=== PATIENT | female | born 1990 | race Caucasian/White ===

== ENCOUNTER 2016-04-30 20:53 | Emergency (ER) | payer OTHER ==
[2016-04-30 20:59] VITALS: TEMP 98.1; BMI 39.1
--- NOTE | 2016-04-30 21:53 | PDOC ---
History of Present Illness - History of Present Illness Initial Comments: 04/30/16 22:10 The patient is a 25 year old female, , with a significant past medical history of asthma, who presents to the emergency department with vaginal spotting today after having a positive at-home test today. She states the vaginal spotting is light brownish/pink in color and intermittent. The patient states she took the test an hour ago before coming to the ED. The patient reports taking a test 2 weeks ago which was negative. The patient reports having a miscarriage in January 2016. The patient reports her LMP February 2016. She denies chest pain, shortness of breath, headache and dizziness. She denies fever, chills, nausea, vomit, diarrhea and constipation. She denies dysuria, frequency, urgency and hematuria. Allergies: NKDA Past surgical history: Social history: denies toxic habits PCP - Dr. Aretha Bloom Legal Instruments Examiner: [facility] <Ela Horan - Last Filed: 04/30/16 22:09> <Danyelle Banegas - Last Filed: 05/01/16 01:10> - General Chief Complaint: Vaginal Bleeding Stated Complaint: VAGINAL BLEEDING Time Seen by Provider: 04/30/16 21:37 Past History <Ela Horan - Last Filed: 04/30/16 22:09> - Past Medical History Asthma: Yes Cancer: No Cardiac Disorders: No Diabetes: No HTN: No Seizures: No Thyroid Disease: No - Reproductive History (#): 1 Para: 0 Cervical CA: No Dysfunctional Uterine Bleeding: No Ectopic : No Endometrial CA: No Polycystic Ovaries: No Therapeutic (s) & number: No Tubal Ligation: No Spontaneous : 0 - Immunization History Immunization Up to Date: Yes - Psycho/Social/Smoking Cessation Hx Anxiety: No Suicidal Ideation: No Smoking History: Never smoked Information on smoking cessation initiated: No Hx Alcohol Use: No Drug/Substance Use Hx: No Substance Use Type: None Hx Substance Use Treatment: No <Danyelle Banegas - Last Filed: 05/01/16 01:10> - Past Medical History Allergies/Adverse Reactions: Allergies Allergy/AdvReac Type Severity Reaction Status Date / Time No Known Allergies Allergy Verified 04/30/16 20:57 Home Medications: Ambulatory Orders NK [No Known Home Medication] 02/07/16 Review of Systems - Review of Systems Able to Perform ROS?: Yes Comments:: 04/30/16 22:10 CONSTITUTIONAL: Absent: fever, chills, diaphoresis, generalized weakness, malaise, loss of appetite HEENT: Absent: rhinorrhea, nasal congestion, throat pain, throat swelling, difficulty swallowing, mouth swelling, ear pain, eye pain, visual Changes CARDIOVASCULAR: Absent: chest pain, syncope, palpitations, irregular heart rate, lightheadedness , peripheral edema RESPIRATORY: Absent: cough, shortness of breath, dyspnea with exertion, orthopnea, wheezing, stridor, hemoptysis GASTROINTESTINAL: Absent: abdominal pain, abdominal distension, nausea, vomiting, diarrhea, constipation, melena, hematochezia GENITOURINARY: (+) Vaginal spotting during . Absent: dysuria, frequency, urgency, hesitancy, hematuria, flank pain, genital pain MUSCULOSKELETAL: Absent: myalgia, arthralgia, joint swelling SKIN: Absent: rash, itching, pallor HEMATOLOGIC/IMMUNOLOGIC: Absent: easy bleeding, easy bruising, lymphadenopathy, frequent infections ENDOCRINE: Absent: unexplained weight gain, unexplained weight loss, heat intolerance, cold intolerance NEUROLOGIC: Absent: headache, focal weakness or paresthesias, dizziness, unsteady gait, seizure, mental status changes, bladder or bowel incontinence PSYCHIATRIC: Absent: anxiety, depression, suicidal or homicidal ideation, hallucinations. <Ela Horan - Last Filed: 04/30/16 22:09> *Physical Exam - Vital Signs Last Vital Signs Temp Pulse Resp BP Pulse Ox 98.1 F 85 18 115/81 98 04/30/16 20:57 04/30/16 20:57 04/30/16 20:57 04/30/16 20:57 04/30/16 20:57 - Physical Exam Comments: 04/30/16 22:15 GENERAL: Well developed, well nourished. Awake and alert. No acute distress. HEENT: Normocephalic, atraumatic. PERRLA, EOMI. No conjunctival pallor. Sclera are non- icteric. Moist mucous membranes. Oropharynx is clear. NECK: Supple. Full ROM. No JVD. Carotid pulses 2+ and symmetric, without bruits. No thyromegaly. No lymphadenopathy. CARDIOVASCULAR: Regular rate and rhythm. No murmurs, rubs, or gallops. Distal pulses are 2+ and symmetric. PULMONARY: No evidence of respiratory distress. Lungs clear to auscultation bilaterally. No wheezing, rales or rhonchi. ABDOMINAL: Soft. Non-tender. Non-distended. No rebound or guarding. No organomegaly. Normoactive bowel sounds. MUSCULOSKELETAL Normal range of motion at all joints. No bony deformities or tenderness. No CVA tenderness. EXTREMITIES: No cyanosis. No clubbing. No edema. No calf tenderness. SKIN: Warm and dry. Normal capillary refill. No rashes. No jaundice. NEUROLOGICAL: Alert, awake, appropriate. Cranial nerves 2-12 intact. Normoreflexic in the upper and lower extremities. Normal speech. Toes are down-going bilaterally. Gait is normal without ataxia. PSYCHIATRIC: Cooperative. Good eye contact. Appropriate mood and affect. <Ela Horan - Last Filed: 04/30/16 22:09> - Vital Signs Last Vital Signs Temp Pulse Resp BP Pulse Ox 98.1 F 85 18 115/81 98 04/30/16 20:57 04/30/16 20:57 04/30/16 20:57 04/30/16 20:57 04/30/16 20:57 <Danyelle Banegas - Last Filed: 05/01/16 01:10> Medical Decision Making - Medical Decision Making 04/30/16 22:34 last miscarriage 01/2016 presents because she took a home preg test and it was positive,she then had some pink vaginal discharge and came to ER out of concern for a miscarriage <Danyelle Banegas - Last Filed: 05/01/16 01:10> *DC/Admit/Observation/Transfer - Attestations Scribe Attestion: 04/30/16 22:15 Documentation prepared by Ela Horan, acting as curator medical museum for Danyelle Banegas MD <Ela Horan - Last Filed: 04/30/16 22:09> <Danyelle Banegas - Last Filed: 05/01/16 01:10> Diagnosis at time of Disposition: Hemorrhage in early - Discharge Dispostion Disposition: HOME Condition at time of disposition: Stable - Referrals Referrals: Aretha Bloom [Primary Care Provider] - - Patient Instructions Printed Discharge Instructions: DI for Vaginal Bleeding During Additional Instructions: please follow up with your dehydrogenation supervisor for further care
[2016-05-01 01:23] VITALS: BP 131/68; PULSE 76
== END 2016-05-01 01:23 | disposition home or self-care (01) ==
LOC: JER 20:53
DX: O20.8 Other hemorrhage in early pregnancy (principal); Z3A.01 Less than 8 weeks gestation of pregnancy
CPT/HCPCS: 36415; 76817-TC; 84702; 99281-25

== ENCOUNTER 2016-05-12 18:13 | Emergency (ER) | payer OTHER ==
[2016-05-12 18:24] VITALS: BP 141/70; PULSE 90; TEMP 98.7; BMI 38.4
[2016-05-12 19:41] LABS: URINE APPEARANCE CLEAR; URINE BILIRUBIN NEGATIVE (NEGATIVE); URINE BLOOD NEGATIVE (NEGATIVE); URINE COLOR LTYELLOW; URINE GLUCOSE (UA) NEGATIVE (NEGATIVE); URINE KETONE NEGATIVE (NEGATIVE); URINE NITRITE NEGATIVE (NEGATIVE); URINE PROTEIN NEGATIVE (NEGATIVE); URINE UROBILINOGEN NEGATIVE E.U./dl (0.2-1.0)
--- NOTE | 2016-05-12 19:49 | PDOC ---
History of Present Illness - General History Source: Patient Exam Limitations: No Limitations - History of Present Illness Initial Comments: 05/12/16 20:14 The patient is a 25 year old female, approximately 6 weeks , A1, with a significant past medical history of miscarriage Jan 2016, presenting to the Emergency Department with one day of vaginal discharge. She reports that she came to the ER on 04/30 for spotting, after taking a positive test. She reports that she then saw her Reconciliation Accountant. She presents today for vaginal discharge, that she describes as yellow and nonbloody. She states that the last time she had intercourse was three days ago. She reports that her last menstrual period was February,. The patient denies dysuria, hematuria, and urinary frequency. Patient denies nausea, vomiting, and diarrhea. Patient denies fever, chills, or cough. Patient denies vaginal bleeding. Past Medical Hx: asthma Surgical Hx: 2014 PCP: Dr. Aretha Bloom Reconciliation Accountant: 2 [facility] <Kiley Mast - Last Filed: 05/12/16 20:14> <Maki Mckeon - Last Filed: 05/14/16 01:11> - General Chief Complaint: Vaginal Sxs Stated Complaint: 5WKS/VAGINAL DISCHARGE Time Seen by Provider: 05/12/16 19:33 Past History <Kiley Mast - Last Filed: 05/12/16 20:14> - Past Medical History Asthma: Yes Cancer: No Cardiac Disorders: No Diabetes: No HTN: No Seizures: No Thyroid Disease: No - Reproductive History Is Patient Now?: Yes (#): 3 Para: 1 Cervical CA: No Dysfunctional Uterine Bleeding: No Ectopic : No Endometrial CA: No Polycystic Ovaries: No Therapeutic (s) & number: No Tubal Ligation: No Spontaneous : 0 - Immunization History Immunization Up to Date: Yes - Psycho/Social/Smoking Cessation Hx Anxiety: No Suicidal Ideation: No Smoking History: Never smoked Have you smoked in the past 12 months: No Information on smoking cessation initiated: No Hx Alcohol Use: No Drug/Substance Use Hx: No Substance Use Type: None Hx Substance Use Treatment: No <Maki Mckeon - Last Filed: 05/14/16 01:11> - Past Medical History Allergies/Adverse Reactions: Allergies Allergy/AdvReac Type Severity Reaction Status Date / Time No Known Allergies Allergy Verified 05/12/16 18:16 Home Medications: Ambulatory Orders Nitrofurantoin Monohyd/M-Cryst [Macrobid -] 100 mg PO BID #14 capsule 05/12/16 Pnv No.122/Iron/Folic Acid [ Multi Tablet] 1 each PO DAILY 05/12/16 Review of Systems - Review of Systems Able to Perform ROS?: Yes Comments:: 05/12/16 20:14 GENERAL/CONSTITUTIONAL: No fever or chills. No weakness. HEAD, EYES, EARS, NOSE AND THROAT: No change in vision. No ear pain or discharge. No sore throat. CARDIOVASCULAR: No chest pain or shortness of breath. RESPIRATORY: No cough, wheezing, or hemoptysis. GASTROINTESTINAL: No nausea, vomiting, diarrhea or constipation. GENITOURINARY: + yellow vaginal discharge. No dysuria, frequency, or change in urination. MUSCULOSKELETAL: No joint or muscle swelling or pain. No neck or back pain. SKIN: No rash NEUROLOGIC: No headache, vertigo, loss of consciousness, or change in strength/ sensation. ENDOCRINE: No increased thirst. No abnormal weight change. HEMATOLOGIC/LYMPHATIC: No anemia, easy bleeding, or history of blood clots. ALLERGIC/IMMUNOLOGIC: No hives or skin allergy. <Kiley Mast - Last Filed: 05/12/16 20:14> *Physical Exam - Vital Signs Last Vital Signs Temp Pulse Resp BP Pulse Ox 98.7 F 90 20 141/70 97 05/12/16 18:18 05/12/16 18:18 05/12/16 18:18 05/12/16 18:18 05/12/16 18:18 - Physical Exam Comments: 05/12/16 20:15 GENERAL: Awake, alert, and fully oriented, in no acute distress HEAD: No signs of trauma EYES: PERRLA, EOMI, sclera anicteric, conjunctiva clear ENT: Auricles normal inspection, hearing grossly normal, nares patent, oropharynx clear without exudates. Moist mucosa NECK: Normal ROM, supple, no lymphadenopathy, JVD, or masses LUNGS: Breath sounds equal, clear to auscultation bilaterally. No wheezes, and no crackles HEART: Regular rate and rhythm, normal S1 and S2, no murmurs, rubs or gallops ABDOMEN: Soft, nontender, normoactive bowel sounds. No guarding, no rebound. No masses GENITOURINARY: External genitalia normal without lesions. No cervical motion tenderness. No adnexal tenderness. Minimal red discharge from os. EXTREMITIES: Normal range of motion, no edema. No clubbing or cyanosis. No cords, erythema, or tenderness NEUROLOGICAL: Cranial nerves II through XII grossly intact. Normal speech, normal gait SKIN: Warm, Dry, normal turgor, no rashes or lesions noted. <Kiley Mast - Last Filed: 05/12/16 20:14> - Vital Signs Last Vital Signs Temp Pulse Resp BP Pulse Ox 98.7 F 90 20 141/70 97 05/12/16 18:18 05/12/16 18:18 05/12/16 18:18 05/12/16 18:18 05/12/16 18:18 <Maki Mckeon - Last Filed: 05/14/16 01:11> ED Treatment Course - LABORATORY CBC & Chemistry Diagram: 05/12/16 19:48 - ADDITIONAL ORDERS Additional order review: Laboratory Results 05/12/16 18:48 Urine Color Ltyellow Urine Appearance Clear Urine pH 5.0 Ur Specific [place] 1.015 Urine Protein Negative Urine Glucose (UA) Negative Urine Ketones Negative Urine Blood Negative Urine Nitrite Negative Urine Bilirubin Negative Urine Urobilinogen Negative Ur Leukocyte Esterase Trace H Urine RBC <1 Urine WBC 10 Ur Epithelial Cells Few Hyaline Casts 1 Urine Mucus Rare 05/12/16 19:48 RBC 4.37 MCV 85.5 MCHC 33.9 RDW 14.0 MPV 8.1 Neutrophils % 71.0 Lymphocytes % 22.2 D Monocytes % 5.1 Eosinophils % 0.9 Basophils % 0.8 <Kiley Mast - Last Filed: 05/12/16 20:14> - LABORATORY CBC & Chemistry Diagram: 05/12/16 19:48 <Maki Mckeon - Last Filed: 05/14/16 01:11> Medical Decision Making - Medical Decision Making 05/14/16 00:56 Pt comes with vaginal discharge in . She previously had come to our ER for vag spotting. Today Rh is POSITIVE, Hb/HVT normal; hcg quant is going up appropriately. Pt had a normal bimanual exam; no CMT; gc/chlamydia culture sent. Leuk+ urine; I will treat with macrobid. Follow with ACCOUNT MANAGER TRAINEE. <Maki Mckeon - Last Filed: 05/14/16 01:11> *DC/Admit/Observation/Transfer - Attestations Scribe Attestion: 05/12/16 20:19 Documentation prepared by Kiley Mast, acting as rn medical inpatient services for Maki Mckeon MD/DO. <Kiley Mast - Last Filed: 05/12/16 20:14> - Discharge Dispostion Admit: No <Maki Mckeon - Last Filed: 05/14/16 01:11> Diagnosis at time of Disposition: UTI (urinary tract infection) during - Discharge Dispostion Disposition: HOME Condition at time of disposition: Stable - Prescriptions Prescriptions: Nitrofurantoin Monohyd/M-Cryst [Macrobid -] 100 mg PO BID #14 capsule - Referrals Referrals: Aretha Bloom [Primary Care Provider] - - Patient Instructions Printed Discharge Instructions: Urinary Tract Infection, The Truth About Sex During
[2016-05-12 19:50] LABS: URINE LEUK ESTERASE TRACE (NEGATIVE)
[2016-05-12 19:52] LABS: URINE HYALINE CAST 1 /lpf; URINE MUCUS RARE; URINE RBC <1 /hpf (0-3); URINE WBC 10 /hpf (3-5)
[2016-05-12 20:03] LABS: BASOPHIL 0.8 % (0-2.0); EOSINOPHIL 0.9 % (0-4.5); MCH 28.9 pg (25.7-33.7); MCHC 33.9 g/dl (32.0-36.0); MEAN CELL VOLUME 85.5 fl (80-96); MEAN PLT VOLUME 8.1 fl (7.5-11.1); PLATELET COUNT 240 K/MM3 (134-434); WHITE BLOOD COUNT 10.5 K/mm3 (4.0-10.0)
[2016-05-12] MEDS ORDERED: NITROFURANTOIN MACROCRYSTAL 50 MG CAPSULE (FP) PO SCH (21:30)
[2016-05-12] MEDS ORDERED: NITROFURANTOIN MACROCRYSTAL 50 MG CAPSULE (FP) ONE (21:33)
== END 2016-05-12 21:35 | disposition home or self-care (01) ==
LOC: JER 18:13
DX: O26.891 Other specified pregnancy related conditions, first trimester (principal); O23.41 Unspecified infection of urinary tract in pregnancy, first trimester; Z3A.01 Less than 8 weeks gestation of pregnancy; J45.909 Unspecified asthma, uncomplicated
CPT/HCPCS: 36415; 81003; 81015; 84702; 85025; 86850; 86900; 86901; 87491; 87591; 99283-25

== ENCOUNTER 2017-01-09 11:55 | Inpatient (IN) | payer OTHER ==
[2017-01-09] MEDS ORDERED: CITRIC ACID/SODIUM CITRATE 30 ML UNIT-DOSE CUP PO ONE (12:00)
[2017-01-09] MEDS ORDERED: ELECTROLYTE-148 SOLN 500 ML IV ONE (12:00)
[2017-01-09] MEDS ORDERED: ELECTROLYTE-148 SOLN 1,000 ML IV SCH (12:30)
[2017-01-09 12:41] VITALS: BMI 38.9
[2017-01-09] MEDS ORDERED: METOCLOPRAMIDE HCL INJECTION 10 MG/2 ML VIAL IVPUSH STA (12:42)
--- NOTE | 2017-01-09 13:05 | HP ---
Past Medical History - Primary Care Physician PCP:: Fabio Wallace - Admission Chief Complaint: 40.4 weeks, labor ,previous c/s requesting repeat c/s History of Present Illness: 26 yo f edc by sono 01/05/17 in labor , cx 2 cm 80 vx -3 , mi , fhr cat 1, requesting repeat c/s, discussed , rba explained History Source: Patient Limitations to Obtaining History: No Limitations - Past Medical History Pulmonary: Yes: Asthma Renal/: Yes: UTI ...: 3 ...Para: 1 ...Term: 1 ...: 0 ...Spon : 1 ...Induced : 0 ...EDC by Sono: 01/05/17 - Past Surgical History Past Surgical History: Yes: None, Hx Myomectomy: No Hx Transabdominal Cerclage: No - Smoking History Smoking history: Never smoked Have you smoked in the past 12 months: No - Alcohol/Substance Use Hx Alcohol Use: No - Social History Usual Living Arrangement: Yes: With Spouse History of Recent Travel: No Home Medications - Allergies Allergies/Adverse Reactions: Allergies Allergy/AdvReac Type Severity Reaction Status Date / Time No Known Allergies Allergy Verified 01/02/17 15:42 - Home Medications Home Medications: Ambulatory Orders Pnv No.122/Iron/Folic Acid [ Multi Tablet] 1 each PO DAILY 05/12/16 Review of Systems - Review of Systems Constitutional: reports: No Symptoms Eyes: reports: No Symptoms HENT: reports: No Symptoms Neck: reports: No Symptoms Cardiovascular: reports: No Symptoms Respiratory: reports: No Symptoms Gastrointestinal: reports: No Symptoms Genitourinary: reports: No Symptoms Breasts: reports: No Symptoms Reported Musculoskeletal: reports: No Symptoms Integumentary: reports: No Symptoms Neurological: reports: No Symptoms Endocrine: reports: No Symptoms Hematology/Lymphatic: reports: No Symptoms Psychiatric: reports: No Symptoms Physical Exam - Maternity Vital Signs: Vital Signs Temperature 98.2 F 01/09/17 12:20 Pulse Rate 74 01/09/17 12:20 Respiratory Rate 18 01/09/17 12:20 Blood Pressure 122/60 01/09/17 12:20 O2 Sat by Pulse Oximetry (%) Constitutional: Yes: Well Nourished, No Distress, Calm Eyes: Yes: WNL, Conjunctiva Clear, EOM Intact HENT: Yes: WNL, Atraumatic, Normocephalic Neck: Yes: WNL, Supple, Trachea Midline Cardiovascular: Yes: WNL, Regular Rate and Rhythm Breast(s): Yes: WNL - Abdominal Exam/OB Fundal Height: 40 Number of Fetuses: Single Presentation: Vertex Contractions: Yes Regularity: Irregular Intensity: Strong Monitor Mode: External Heart Rate Location: [facility] Category: I - Vaginal Exam/OB Speculum Exam: No Dilatation (cm): 1 cm Effacement (%): 80 Amniotic Membrane Status: Intact Presentation: Vertex/Position Station: -3 - Physical Exam Musculoskeletal: Yes: WNL Extremities: Yes: WNL Edema: Yes Edema: LLE: Trace, RLE: Trace Deep Tendon Reflex Grade: Normal +2 Psychiatric: Yes: WNL Hemorrhage Risk Assessment - Risk Factors Medium Risk Factors: Yes: Prior , uterine surgery,or multiple laparotomies Risk Score: 1 Risk Level: Medium Risk Problem List - Problems (1) Post term over 40 weeks Code(s): O48.0 - POST-TERM (2) Previous section Code(s): Z98.891 - HISTORY OF UTERINE SCAR FROM PREVIOUS SURGERY (3) Labor established Code(s): BVV6952 - Assessment/Plan admit for repeat c/s rba discussed
[2017-01-09] MEDS ORDERED: METHYLERGONOVINE MALEATE 0.2 MG/1 ML AMP IM PRN (14:04)
[2017-01-09] MEDS ORDERED: BENZOCAINE 20% 57 GM BOTTLE TP PRN (14:04)
[2017-01-09] MEDS ORDERED: BENZOCAINE 28 GM HEMORRHOIDAL OINTMENT PR PRN (14:04)
[2017-01-09] MEDS ORDERED: IBUPROFEN 800 MG/8 ML IJ IVPB PRN (14:04)
[2017-01-09] MEDS ORDERED: oxyCODONE HCL 5 MG TABLET PO PRN (14:04)
[2017-01-09] MEDS ORDERED: WITCH HAZEL 50% (TUCKS) 40 PAD/JAR PAD TP PRN (14:04)
[2017-01-09] MEDS ORDERED: diphenhydrAMINE HCL 25 MG CAPSULE (FP) PO PRN (14:04)
[2017-01-09] MEDS ORDERED: IBUPROFEN 600 MG TABLET (FP) PO PRN (14:04)
[2017-01-09] MEDS ORDERED: DEXTROSE 5%-LACTATED RINGERS 1,000 ML IV SCH (14:15)
[2017-01-09] MEDS ORDERED: morphine SULFATE/Preservative Free 0.5 MG/ML (1cc Syringe) SPIN ONE (14:15)
[2017-01-09] MEDS ORDERED: ACETAMINOPHEN 325 MG TABLET (FP) PO PRN (14:15)
[2017-01-09] MEDS ORDERED: ONDANSETRON 4 MG/2 ML VIAL IVPB PRN (14:15)
[2017-01-09] MEDS ORDERED: CEFAZOLIN 1 GM/D5W 50 ML IVPB SCH (18:00)
--- NOTE | 2017-01-09 19:56 | OP ---
DATE OF OPERATION: 01/09/2017 PREOPERATIVE DIAGNOSIS: at 40.4 weeks' gestation, previous section, labor, request of repeat section. POSTOPERATIVE DIAGNOSIS: at 40.4 weeks' gestation, previous section, labor, request of repeat section. PROCEDURE: Repeat low segment transverse resection. SURGEON: Fabio Prince M.D. WINDOWS INFRASTRUCTURE ENGINEER: Luciana Ross ESTIMATED BLOOD LOSS: 500 mL. FINDINGS: Live baby, Apgars 9 and 9. OPERATION: Patient was taken to operating room with adequate spinal anesthesia. Abdomen and perineum were prepped and draped. Pfannenstiel abdominal skin incision was made. Abdominal wall was cut layer by layer until the peritoneum was exposed and incised. Upon entering the abdominal cavity, the lower uterine segment was identified, and uterovesical fold of the peritoneum was established. The bladder was pushed down. Then with the lower blade of the Pranav retractor in the pelvis, a low transverse uterine incision was made. Bladder was pushed down, and then an amniotic sac was entered. Clear fluid. Head delivered. Nasopharynx was suctioned. A live baby was delivered without any difficulty, 9 and 9. Placenta was delivered manually. Uterine cavity was cleared of all remaining tissue. Uterine incision was closed in 2 layers, the 1st layer with 0 Biosyn continuous suture, the 2nd layer with 0 Biosyn imbricating the 1st layer. Bladder flap was closed with 0 Biosyn continuous suture. Both tubes and ovaries were checked and were normal. No active bleeding was seen. All the lap, sponge, and instrument counts were correct. Then peritoneum was closed with 0 Biosyn continuous suture. Muscles were brought together with interrupted suture with 0 Biosyn. Fascia was closed with 0 Biosyn continuous sutures. Subcutaneous fat with interrupted sutures 0 Biosyn, and the skin was closed with 3-0 Vicryl subcuticular suture. The patient tolerated the procedure well and left the OR in good condition. FABIO PRINCE M.D. /[id number]
[2017-01-09] MEDS: OXYTOCIN 20 UNITS in 0.9% NS 1,000 ML IV SCH (21:00)
[2017-01-09] MEDS: CEFAZOLIN 1 GM/D5W 50 ML IVPB SCH (22:40)
[2017-01-10] MEDS: CEFAZOLIN 1 GM/D5W 50 ML IVPB SCH (05:38)
[2017-01-10] MEDS: SIMETHICONE 80 MG TAB.CHEW (FP) PO PRN ×3 (06:17→21:48)
--- NOTE | 2017-01-10 08:15 | PN ---
Post Progress Note Post Day: 1 Type of Delivery: Repeat C/S Vital Signs: Vital Signs Temperature 98.2 F 01/10/17 06:00 Pulse Rate 72 01/10/17 06:00 Respiratory Rate 18 01/10/17 06:00 Blood Pressure 103/63 01/10/17 06:00 O2 Sat by Pulse Oximetry (%) 100 01/09/17 15:30 Breast Exam: Yes: Soft Uterus: Yes: Fundus Firm Incision: Yes: Dressing dry and intact Abdomen/GI: Yes: Tolerating PO Lochia: Yes: Rubra Lochia, amount: Small Extremities: Yes: Calves non-tender Perineum: Yes: Intact Activity: Ambulating Assessment/Plan check labs oob reg diet
[2017-01-10 08:20] LABS: BASOPHIL 0.5 % (0-2.0); EOSINOPHIL 0.5 % (0-4.5); MCH 28.2 pg (25.7-33.7); MCHC 33.1 g/dl (32.0-36.0); MEAN PLT VOLUME 8.1 fl (7.5-11.1); NEUTROPHILS 74.5 % (42.8-82.8); PLATELET COUNT 204 K/MM3 (134-434); WHITE BLOOD COUNT 10.2 K/mm3 (4.0-10.0)
[2017-01-10] MEDS ORDERED: FLU VACC QS2017-18 36MOS UP/PF 60 MCG/0.5 ML SYRINGE IM ONE (10:00)
[2017-01-10] MEDS: ENOXAPARIN NA (PORCINE) 40 MG/0.4 ML DISP.SYRIN SQ SCH (11:25)
--- NOTE | 2017-01-10 11:55 | PN ---
Progress Note, Physician Chief Complaint: s/p c section under spinal anesthesia History of Present Illness: post op day one with duramorph for pain control - Current Medication List Current Medications: Active Medications Acetaminophen (Tylenol -) 650 mg PO Q4H PRN PRN Reason: FEVER OR PAIN Last Admin: 01/10/17 06:18 Dose: 650 mg Benzocaine (Americaine Ointment -) 1 applic IA PRN PRN PRN Reason: PAIN Benzocaine (Americaine 20% [place] -) 1 spray TP PRN PRN PRN Reason: PAIN Bisacodyl (Dulcolax Suppository -) 10 mg IA PRN PRN PRN Reason: CONSTIPATION Diphenhydramine HCl (Benadryl -) 25 mg PO Q8H PRN PRN Reason: FOR ITCHING Diphenhydramine HCl (Benadryl Injection -) 25 mg IVPUSH Q4H PRN PRN Reason: Pruritis Last Admin: 01/09/17 21:09 Dose: 25 mg Enoxaparin Sodium (Lovenox -) 40 mg SQ DAILY RAFAEL Last Admin: 01/10/17 11:25 Dose: 40 mg Parenteral Electrolytes (Plasma-Lyte 148 -) 1,000 mls @ 125 mls/hr IV ASDIR RAFAEL Last Admin: 01/09/17 13:00 Dose: 125 mls/hr Dextrose/Lactated Ringer's (D5-Lr -) 1,000 mls @ 125 mls/hr IV ASDIR RAFAEL Ibuprofen (Motrin -) 600 mg PO Q4H PRN PRN Reason: PAIN Last Admin: 01/10/17 06:22 Dose: 600 mg Methylergonovine Maleate (Methergine Injection -) 0.2 mg IM Q4H PRN PRN Reason: EXCESSIVE BLEEDING Oxycodone HCl (Roxicodone -) 5 mg PO Q4H PRN PRN Reason: PAIN LEVEL 1-5 Oxycodone HCl (Roxicodone -) 10 mg PO Q4H PRN PRN Reason: PAIN LEVEL 6-10 Senna/Docusate Sodium (Pericolace -) 2 tablet PO HS PRN PRN Reason: CONSTIPATION Simethicone (Mylicon -) 80 mg PO Q4H PRN PRN Reason: GAS Last Admin: 01/10/17 06:17 Dose: 80 mg Witch [place]/Glycerin (Tucks Pads -) 1 pad TP PRN PRN PRN Reason: PAIN - Objective Vital Signs: Vital Signs Temperature 98.2 F 01/10/17 06:00 Pulse Rate 72 01/10/17 06:00 Respiratory Rate 18 01/10/17 06:00 Blood Pressure 103/63 01/10/17 06:00 O2 Sat by Pulse Oximetry (%) 100 01/09/17 15:30 Constitutional: Yes: Well Nourished Cardiovascular: Yes: WNL Respiratory: Yes: WNL Gastrointestinal: Yes: WNL Labs: CBC, BMP 01/10/17 07:45 Assessment/Plan No adverse effects of anesthetic, mild itching now resolved, no other side effects, patient is ambulating, no headache, dept of anesthesiology will sign off care at this time
[2017-01-10] MEDS ORDERED: BISACODYL 10 MG SUPP.RECT PR PRN (14:05)
[2017-01-10] MEDS: IBUPROFEN 100 MG/5 ML UNIT DOSE CUPS PO PRN ×2 (16:53→21:48)
[2017-01-10] MEDS: OXYTOCIN 20 UNITS in 0.9% NS 1,000 ML IV SCH (21:40)
[2017-01-10] MEDS: oxyCODONE HCL 5 MG TABLET PO PRN (21:51)
[2017-01-11] MEDS: oxyCODONE HCL 5 MG TABLET PO PRN ×3 (05:53→21:36)
[2017-01-11] MEDS: SIMETHICONE 80 MG TAB.CHEW (FP) PO PRN ×3 (05:54→21:35)
[2017-01-11] MEDS: IBUPROFEN 100 MG/5 ML UNIT DOSE CUPS PO PRN ×3 (05:54→21:37)
[2017-01-11] MEDS: ENOXAPARIN NA (PORCINE) 40 MG/0.4 ML DISP.SYRIN SQ SCH (09:33)
--- NOTE | 2017-01-11 16:51 | PN ---
Progress Note (short form) - Note Progress Note: pod 2 .s/p repeat c/s, doing well, ambulating CBC, BMP 01/10/17 07:45 Last Vital Signs Temp Pulse Resp BP Pulse Ox 98.1 F 88 20 117/70 99 01/11/17 10:00 01/11/17 10:00 01/11/17 10:00 01/11/17 10:00 01/10/17 22:00 abdomen soft, no distension, no cva incision dry, clean no calf tenderness plan ambualte , cbc in am Problem List - Problems (1) Post term over 40 weeks Code(s): O48.0 - POST-TERM (2) Previous section Code(s): Z98.891 - HISTORY OF UTERINE SCAR FROM PREVIOUS SURGERY (3) Labor established Code(s): OOO3809 -
[2017-01-11] MEDS ORDERED: SENNOSIDES/DOCUSATE COMBO (SENNA PLUS) TABLET (UD) PO PRN (22:00)
--- NOTE | 2017-01-12 08:14 | DS ---
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[employer] Vital Signs: Vital Signs Temperature 98.5 F 01/11/17 22:00 Pulse Rate 76 01/11/17 22:00 Respiratory Rate 18 01/11/17 22:00 Blood Pressure 114/56 01/11/17 22:00 O2 Sat by Pulse Oximetry (%) 99 01/10/17 22:00 Constitutional: Yes: Well Nourished, No Distress, Calm Eyes: Yes: WNL, Conjunctiva Clear, EOM Intact HENT: Yes: WNL, Atraumatic, Normocephalic Neck: Yes: WNL, Supple, Trachea Midline Cardiovascular: Yes: WNL, Regular Rate and Rhythm Respiratory: Yes: WNL, Regular, CTA Bilaterally Gastrointestinal: Yes: WNL ...Rectal Exam: Yes: WNL Renal/: Yes: WNL ....Post : Yes: Uterus firm, Uterus non-tender, Slight lochia rubra Breast(s): Yes: WNL Musculoskeletal: Yes: WNL Extremities: Yes: WNL Edema: Yes Edema: LLE: Trace, RLE: Trace Integumentary: Yes: WNL Wound/Incision: Yes: Clean/Dry, Well Approximated, Sutures Intact Neurological: Yes: WNL, Alert, Oriented ...Motor Strength: WNL Psychiatric: Yes: WNL, Alert, Oriented Delivery - Delivery Section: Repeat, Low Flap Transverse (no complication) Type of Anesthesia: Spinal Episiotomy/Laceration: None EBL (cc): 500 Delivery, Single - Stages of Labor Date 1st Stage Initiatied: 01/09/17 Time 1st Stage Initiated: 11:30 Date of Delivery: 01/09/17 Time of Delivery: 13:42 Time Placenta Delivered: 13:43 Placenta: Yes: Expressed - Condition of Infant Customer Service Analyst/Content Management Consultant Present: Yes Name: Erendira Flores Infant Gender: Male Weight: 8 lb 15 oz Position: Right, OT Total Hours ROM (Hrs/Mins): 0hrs/2mins - 1 Minute Total Score: 9 5 Minutes Total Score: 9 - Feeding Plan Initial Plan: Elected not to breastfeed exclusively throughout hospitalization Discharge Summary Reason For Visit: C SECTION Current Active Problems Labor established (Acute) Post term over 40 weeks (Acute) Previous section (Acute) Procedures: Principal: repeat LST c/s Hospital Course: uneventful Condition: Good - Instructions Diet, Activity, Other Instructions: regular diet, follow up h care 1 week Referrals: Fabio Wallace MD [Staff Physician] - Disposition: HOME - Home Medications Comprehensive Discharge Medication List: Ambulatory Orders Pnv No.122/Iron/Folic Acid [ Multi Tablet] 1 each PO DAILY 05/12/16 Ibuprofen [Motrin -] 600 mg PO QID #28 tablet 01/11/17
[2017-01-12 08:24] LABS: BASOPHIL 0.5 % (0-2.0); EOSINOPHIL 1.1 % (0-4.5); MCH 28.5 pg (25.7-33.7); MCHC 33.4 g/dl (32.0-36.0); MEAN CELL VOLUME 85.5 fl (80-96); NEUTROPHILS 66.6 % (42.8-82.8); PLATELET COUNT 216 K/MM3 (134-434); RDW 14.1 % (11.6-15.6); WHITE BLOOD COUNT 5.6 K/mm3 (4.0-10.0)
[2017-01-12 08:32] VITALS: BP 114/71; PULSE 75; TEMP 98.6
[2017-01-12] MEDS: ENOXAPARIN NA (PORCINE) 40 MG/0.4 ML DISP.SYRIN SQ SCH (09:18)
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
== END 2017-01-12 13:05 | disposition home or self-care (01) | DRG 766 ==
LOC: JLDR 11:55 → J3W 16:30
PROVIDERS: ADMIT Obstetrics & Gynecology; ATTEND Obstetrics & Gynecology
PROC: 10D00Z1 Extraction of Products of Conception, Low, Open Approach (ICD-10-PCS; principal; 2017-01-09)
DX: O34.211 Maternal care for low transverse scar from previous cesarean delivery (principal); N85.8 Other specified noninflammatory disorders of uterus; O48.0 Post-term pregnancy; Z3A.40 40 weeks gestation of pregnancy; Z37.0 Single live birth
CPT/HCPCS: 36415; 85025; 88307-TC; 90686; G0008

== ENCOUNTER 2018-07-22 08:49 | Emergency (ER) | payer OTHER ==
[2018-07-22 09:02] VITALS: BMI 39.3
[2018-07-22] MEDS ORDERED: ACETAMINOPHEN 1000 MG/100 ML VIAL (NON FORMULARY) IVPB ONE (09:43)
[2018-07-22] MEDS ORDERED: SODIUM CHLORIDE 0.9% 1000 ML INFUS.BAG IV ONE (09:43)
--- NOTE | 2018-07-22 10:01 | PDOC ---
History of Present Illness - General Chief Complaint: Urinary Problem Stated Complaint: SENT BY PCP Time Seen by Provider: 07/22/18 09:37 History Source: Patient Exam Limitations: No Limitations Past History - Travel Traveled outside of the country in the last 30 days: No Close contact w/someone who was outside of country & ill: No - Past Medical History Allergies/Adverse Reactions: Allergies Allergy/AdvReac Type Severity Reaction Status Date / Time No Known Allergies Allergy Verified 07/22/18 08:58 Home Medications: Ambulatory Orders Ondansetron [Zofran Odt -] 4 mg SL TID #10 od.tablet 07/22/18 Sulfamethoxazole/Trimethoprim [Bactrim Ds -] 1 tab PO BID #20 tablet 07/22/18 Asthma: Yes (last attack >5yrs ago) Cancer: No Cardiac Disorders: No COPD: No Diabetes: No HTN: No Seizures: No Thyroid Disease: No - Reproductive History (#): 3 Para: 1 Cervical CA: No Dysfunctional Uterine Bleeding: No Ectopic : No Endometrial CA: No Polycystic Ovaries: No Therapeutic (s) & number: No Tubal Ligation: No Spontaneous : 0 - Immunization History Immunization Up to Date: Yes - Suicide/Smoking/Psychosocial Hx Smoking History: Never smoked Have you smoked in the past 12 months: No Hx Alcohol Use: No Drug/Substance Use Hx: No Substance Use Type: None Hx Substance Use Treatment: No Review of Systems - Review of Systems Able to Perform ROS?: Yes Comments:: 07/22/18 13:40 CONSTITUTIONAL: Absent: fever, chills, diaphoresis, generalized weakness, malaise, loss of appetite HEENT: Absent: rhinorrhea, nasal congestion, throat pain, throat swelling, difficulty swallowing, mouth swelling, ear pain, eye pain, visual Changes CARDIOVASCULAR: Absent: chest pain, loss of consciousness, palpitations, irregular heart rate, peripheral edema RESPIRATORY: Absent: cough, shortness of breath, dyspnea with exertion, orthopnea, wheezing, stridor, hemoptysis GASTROINTESTINAL: Absent: abdominal pain, abdominal distension, nausea, vomiting, diarrhea, constipation, melena, hematochezia GENITOURINARY: Absent: dysuria, frequency, urgency, hesitancy, hematuria, flank pain, genital pain MUSCULOSKELETAL: Absent: myalgia, arthralgia, joint swelling SKIN: Absent: rash, itching, pallor HEMATOLOGIC/IMMUNOLOGIC: Absent: easy bleeding, easy bruising, lymphadenopathy, frequent infections ENDOCRINE: Absent: unexplained weight gain, unexplained weight loss, heat intolerance, cold intolerance NEUROLOGIC: Absent: headache, focal weakness or paresthesias, dizziness, unsteady gait, seizure, mental status changes, bladder or bowel incontinence PSYCHIATRIC: Absent: anxiety, depression, suicidal or homicidal ideation, hallucinations. Is the patient limited Welsh proficient: No *Physical Exam - Vital Signs Last Vital Signs Temp Pulse Resp BP Pulse Ox 98.8 F 118 H 17 110/63 98 07/22/18 08:59 07/22/18 08:59 07/22/18 08:59 07/22/18 08:59 07/22/18 09:21 - Physical Exam Comments: 07/22/18 13:40 GENERAL: Well developed, well nourished. Awake and alert. No acute distress. HEENT: Normocephalic, atraumatic. PERRLA, EOMI. No conjunctival pallor. Sclera are non- icteric. Moist mucous membranes. Oropharynx is clear. NECK: Supple. Full ROM. No JVD. Carotid pulses 2+ and symmetric, without bruits. No thyromegaly. No lymphadenopathy. CARDIOVASCULAR: Regular rate and rhythm. No murmurs, rubs, or gallops. Distal pulses are 2+ and symmetric. PULMONARY: No evidence of respiratory distress. Lungs clear to auscultation bilaterally. No wheezing, rales or rhonchi. ABDOMINAL: Soft. Non-tender. Non-distended. No rebound or guarding. No organomegaly. Normoactive bowel sounds. MUSCULOSKELETAL Normal range of motion at all joints. No bony deformities or tenderness. No CVA tenderness. EXTREMITIES: No cyanosis. No clubbing. No edema. No calf tenderness. SKIN: Warm and dry. Normal capillary refill. No rashes. No jaundice. NEUROLOGICAL: Alert, awake, appropriate. Cranial nerves 2-12 intact. No deficits to light touch and temperature in face, upper extremities and lower extremities. No motor deficits in the in face, upper extremities and lower extremities. Normoreflexic in the upper and lower extremities. Normal speech. Toes are down- going bilaterally. Gait is normal without ataxia. PSYCHIATRIC: Cooperative. Good eye contact. Appropriate mood and affect. ED Treatment Course - LABORATORY CBC & Chemistry Diagram: 07/22/18 09:52 07/22/18 10:00 Medical Decision Making - Medical Decision Making 07/22/18 13:42 Pt requested tab rather than capsule as outpatient antibiotics. Sent Bactrim DS *DC/Admit/Observation/Transfer Diagnosis at time of Disposition: Pyelonephritis - Discharge Dispostion Disposition: HOME Condition at time of disposition: Stable Decision to Admit order: No - Prescriptions Prescriptions: Sulfamethoxazole/Trimethoprim [Bactrim Ds -] 1 tab PO BID #20 tablet - Referrals Referrals: Aretha Bloom [Primary Care Provider] - - Patient Instructions Printed Discharge Instructions: DI for Kidney Infection Additional Instructions: You were evaluated today for your pain You have a kidney infection (Pyleonephritis) Please take the Bactrim twice a day for 2 weeks You may take the Zofran every 8 hours as needed for nausea or vomiting Drink plenty of fluids Follow up with your primary care doctor this week Return to the ER for worsening pain despite treatment, fever, vomiting, lightheadedness, or if you have any changes in your symptoms - Post Discharge Activity Forms/Work/School Notes: Back to Work
[2018-07-22 10:13] LABS: BASO % 0.4 % (0-2.0); EOS % 0.2 % (0-4.5); HEMATOCRIT 39.3 % (32.4-45.2); HEMOGLOBIN 13.3 GM/dL (10.7-15.3); LYMPH % 12.6 % (8-40); MCH 28.4 pg (25.7-33.7); MCHC 33.8 g/dl (32.0-36.0); MEAN CELL VOLUME 84.1 fl (80-96); MEAN PLT VOLUME 7.6 fl (7.5-11.1); MONO % 6.9 % (3.8-10.2); NEUT % 79.9 % (42.8-82.8); PLATELET COUNT 255 K/MM3 (134-434); RBC 4.67 M/mm3 (3.60-5.2); RDW 13.6 % (11.6-15.6); WHITE BLOOD COUNT 11.6 K/mm3 (4.0-10.0)
[2018-07-22 10:15] LABS: HCG,QUALITATIVE URINE Negative
[2018-07-22 10:17] LABS: EPI CELLS 1.6 /HPF (0-5/HPF); PH,URINE 5.5 (5.0-8.0); URINE APPEARANCE TURBID; URINE BACTERIA 574.5 /hpf (NEGATIVE); URINE BILIRUBIN NEGATIVE (NEGATIVE); URINE CASTS 6 /lpf (0-8); URINE COLOR YELLOW; URINE GLUCOSE (UA) NEGATIVE (NEGATIVE); URINE KETONE NEGATIVE (NEGATIVE); URINE LEUK ESTERASE 3+ (NEGATIVE); URINE NITRITE NEGATIVE (NEGATIVE); URINE PROTEIN 2+ (NEGATIVE); URINE RBC 38 /hpf (0-4); URINE UROBILINOGEN 0.2 mg/dL (0.2-1.0); URINE WBC 693 /hpf (0-5)
[2018-07-22 11:09] LABS: ALBUMIN 3.9 g/dl (3.4-5.0); ALK PHOS 137 U/L (45-117); ANION GAP 5 MMOL/L (8-16); BILIRUBIN,TOTAL 0.7 mg/dL (0.2-1); BLOOD UREA NITROGEN 9 mg/dL (7-18); CALCIUM 8.9 mg/dL (8.5-10.1); CHLORIDE 107 mmol/L (98-107); CO2 26 mmol/L (21-32); CREATININE 0.7 mg/dL (0.55-1.3); GLUCOSE,RANDOM 98 mg/dL (74-106); SGOT/AST 16 U/L (15-37); SGPT/ALT 29 U/L (13-61); SODIUM 138 mmol/L (136-145); TOT PROT 7.7 g/dl (6.4-8.2)
[2018-07-22] MEDS ORDERED: ONDANSETRON 4 MG/2 ML VIAL IVPUSH ONE (11:16)
[2018-07-22] MEDS ORDERED: CEFTRIAXONE 1,000 MG in DEXTROSE 5%-WATER - 50 ML IVPB ONE (11:16)
[2018-07-22] MEDS ORDERED: ONDANSETRON 4 MG/2 ML VIAL ONE (11:29)
[2018-07-22] MEDS ORDERED: CEFTRIAXONE 1 GM/50 ML BAG ONE (11:29)
[2018-07-22] MEDS ORDERED: SODIUM CHLORIDE 1,000 ML IV STA (12:08)
[2018-07-22 14:18] VITALS: BP 118/79; PULSE 89; TEMP 98.1
== END 2018-07-22 14:18 | disposition home or self-care (01) ==
LOC: JER 08:49
PROC: 3E0337Z Introduction of Electrolytic and Water Balance Substance into Peripheral Vein, Percutaneous Approach (ICD-10-PCS; principal; 2018-07-22)
PROC: 3E03329 Introduction of Other Anti-infective into Peripheral Vein, Percutaneous Approach (ICD-10-PCS; 2018-07-22)
PROC: 3E033GC Introduction of Other Therapeutic Substance into Peripheral Vein, Percutaneous Approach (ICD-10-PCS; 2018-07-22)
PROC: 3E033NZ Introduction of Analgesics, Hypnotics, Sedatives into Peripheral Vein, Percutaneous Approach (ICD-10-PCS; 2018-07-22)
DX: N12 Tubulo-interstitial nephritis, not specified as acute or chronic (principal)
CPT/HCPCS: 36415; 74176-TC; 80053; 81003; 84703; 85025; 87086; 87186; 99284-25; J0131; J7030

== ENCOUNTER 2018-07-24 07:09 | Observation (INO) | payer OTHER ==
[2018-07-24] MEDS ORDERED: SODIUM CHLORIDE 0.9% 500 ML INFUS.BAG IV ONE ×2 (07:40→09:22)
[2018-07-24] MEDS ORDERED: ACETAMINOPHEN 1000 MG/100 ML VIAL (NON FORMULARY) IVPB ONE ×2 (08:12→19:25)
[2018-07-24] MEDS ORDERED: CEFTRIAXONE 1,000 MG in DEXTROSE 5%-WATER - 50 ML IVPB ONE (08:13)
[2018-07-24] MEDS ORDERED: ACETAMINOPHEN INJECTION 100 ML IVPB ONE (08:26)
[2018-07-24] MEDS ORDERED: CEFTRIAXONE 1 GM/50 ML BAG ONE (08:27)
[2018-07-24 08:44] LABS: BASO % 0.5 % (0-2.0); HEMATOCRIT 37.2 % (32.4-45.2); HEMOGLOBIN 12.8 GM/dL (10.7-15.3); MCH 28.3 pg (25.7-33.7); MCHC 34.4 g/dl (32.0-36.0); MEAN CELL VOLUME 82.2 fl (80-96); MEAN PLT VOLUME 7.9 fl (7.5-11.1); MONO % 7.9 % (3.8-10.2); NEUT % 82.6 % (42.8-82.8); PLATELET COUNT 210 K/MM3 (134-434); RBC 4.53 M/mm3 (3.60-5.2); RDW 13.5 % (11.6-15.6); WHITE BLOOD COUNT 5.7 K/mm3 (4.0-10.0)
[2018-07-24 09:16] LABS: ALBUMIN 3.7 g/dl (3.4-5.0); ALK PHOS 121 U/L (45-117); ANION GAP 8 MMOL/L (8-16); BILIRUBIN,TOTAL 0.4 mg/dL (0.2-1); BLOOD UREA NITROGEN 5 mg/dL (7-18); CALCIUM 8.5 mg/dL (8.5-10.1); CHLORIDE 105 mmol/L (98-107); CO2 23 mmol/L (21-32); CREATININE 0.7 mg/dL (0.55-1.3); GLUCOSE,RANDOM 111 mg/dL (74-106); POTASSIUM 4.1 mmol/L (3.5-5.1); SGOT/AST 35 U/L (15-37); SGPT/ALT 34 U/L (13-61); SODIUM 136 mmol/L (136-145); TOT PROT 7.6 g/dl (6.4-8.2)
--- NOTE | 2018-07-24 09:27 | PDOC ---
Documentation entered by Tawana Acuna SCRIBE, acting as scribe for Sofi Schwartz MD. Sofi Schwartz MD: This documentation has been prepared by the scribe, Tawana Acuna SCRIBE, under my direction and personally reviewed by me in its entirety. I confirm that the documentation accurately reflects all work, treatment, procedures, and medical decision making performed by me. History of Present Illness - General Chief Complaint: Pain, Acute Stated Complaint: REVISIT,KIDNEY INFECTION,HEADACHE Time Seen by Provider: 07/24/18 07:42 History Source: Patient, Old Records Exam Limitations: No Limitations - History of Present Illness Initial Comments: 07/24/18 08:11 The patient is a 27-year-old female, with a past medical history of asthma, who presents to the ED with fever, chills, headache, right-sided flank pain and back pain. The patient was diagnosed with recent pyelonephritis on 07/22/18 and has been on bactrim since then. CT a/p neg at that time, with no abdominal or renal pathology, no stone; gallstones noted. The urine culture was +lactose fermenting bacilli. UA prelim was noted to have copious WBC and 3+ leuk esterase. The patient reports that her symptoms have progressively worsened since her last visit ~2 d ago. The patient has not been able tolerate PO intake, including the bactrim or zofran due to nausea/ vomiting. She reports 1 episode of nonbilious/nonbloody emesis and states that she is now throwing up foamy material. The patient has been experiencing fevers , chills with Tmax 102, body aches, sweats, weakness, dizziness, and a headache. +urinary urgency and frequency, but no dysuria, hesitancy, or hematuria. She has been taking Tylenol with no relief of her symptoms. The patient denies any diarrhea, constipation, or abdominal pain. Denies any chest pain, palpitations, or shortness of breath. Denies any vaginal bleeding or vaginal discharge. Denies any numbness or weakness of the extremities. Allergies: NKA Surgical History: 2 C-sections Social History: None reported. PCP: Dr. Aretha Bloom 07/24/18 09:23 Past History - Past Medical History Allergies/Adverse Reactions: Allergies Allergy/AdvReac Type Severity Reaction Status Date / Time No Known Allergies Allergy Verified 07/24/18 07:24 Home Medications: Ambulatory Orders Ondansetron [Zofran Odt -] 4 mg SL TID #10 od.tablet 07/22/18 Sulfamethoxazole/Trimethoprim [Bactrim Ds -] 1 tab PO BID #20 tablet 07/22/18 Asthma: Yes (last attack >5yrs ago) Cancer: No Cardiac Disorders: No COPD: No Diabetes: No HTN: No Seizures: No Thyroid Disease: No - Reproductive History (#): 3 Para: 1 Cervical CA: No Dysfunctional Uterine Bleeding: No Ectopic : No Endometrial CA: No Polycystic Ovaries: No Therapeutic (s) & number: No Tubal Ligation: No Spontaneous : 0 - Immunization History Immunization Up to Date: Yes - Suicide/Smoking/Psychosocial Hx Smoking History: Never smoked Have you smoked in the past 12 months: No Hx Alcohol Use: No Drug/Substance Use Hx: No Substance Use Type: None Hx Substance Use Treatment: No Review of Systems - Review of Systems Able to Perform ROS?: Yes Comments:: 07/24/18 08:21 GENERAL/CONSTITUTIONAL: (+)Fever, chills, weakness, sweats. HEAD, EYES, EARS, NOSE AND THROAT: No sore throat or mouth pain. No difficulty swallowing. No congestion. CARDIOVASCULAR: No chest pain or palpitations, syncope or edema. RESPIRATORY: No SOB, cough GASTROINTESTINAL (+)nausea and vomiting. +flank pain. No diarrhea or constipation. GENITOURINARY: (+)Urgency. +frequency. No hematuria, dysuria, or other changes. MUSCULOSKELETAL: (+)Myalgias, back pain. No joint swelling or pain. No decreased range of motion. SKIN: No rash or changes in skin color or lesions. No wounds. NEUROLOGIC: alert and oriented appropriately (+)Headache, dizziness. No loss of consciousness, or change in strength/ sensation. No gait instability. HEMATOLOGIC/LYMPHATIC: No anemia, easy bruising/bleeding, or history of blood clots. No swollen lymph nodes ALLERGIC/IMMUNOLOGIC: No allergies PSYCH: no anxiety/depression All other systems reviewed and negative, or as documented in HPI. 07/24/18 09:24 *Physical Exam - Vital Signs Last Vital Signs Temp Pulse Resp BP Pulse Ox 101.7 F H 111 H 18 140/64 96 07/24/18 08:03 07/24/18 07:25 07/24/18 07:25 07/24/18 07:25 07/24/18 07:25 - Physical Exam Comments: 07/24/18 08:23 General: Awake and alert, NAD. HEENT: NCAT, PERRL, EOMI, clear conjunctiva, anicteric, moist mucus membranes, clear oropharynx, no oral lesions.. Neck: neck supple, FROM Resp: CTAB, normal and even respirations, no respiratory distress CVS: tachycardic, no murmurs, 2+ peripheral pulses throughout, no peripheral edema Abdomen: (+)RT-sided CVA tenderness. Soft, NTND, no rebound or guarding. Back: +right CVAT. normal inspection and ROM MSK: no edema, HERNANDEZ x4, ROM intact. No clubbing or cyanosis. normal bulk and tone. Neuro: alert, oriented appropriately; no focal neurologic deficits Skin: warm and well perfused, cap refill <2 sec, normal color, (+)Diaphoretic, moist skin. 07/24/18 09:25 ED Treatment Course - LABORATORY CBC & Chemistry Diagram: 07/24/18 08:17 07/24/18 08:17 - ADDITIONAL ORDERS Additional order review: Laboratory Results 07/24/18 07/24/18 08:17 08:17 Sodium 136 Potassium 4.1 Chloride 105 Carbon Dioxide 23 Anion Gap 8 BUN 5 L Creatinine 0.7 Creat Clearance w eGFR 98.93 Random Glucose 111 H Lactic Acid 0.9 Calcium 8.5 Total Bilirubin 0.4 AST 35 ALT 34 Alkaline Phosphatase 121 H Total Protein 7.6 Albumin 3.7 07/24/18 08:17 RBC 4.53 MCV 82.2 MCHC 34.4 RDW 13.5 MPV 7.9 Neutrophils % 82.6 Lymphocytes % 9.0 D Monocytes % 7.9 Eosinophils % 0.0 D Basophils % 0.5 - Medications Given in the ED: ED Medications Discontinued Medications Generic Name Dose Route Start Last Admin Trade Name Freq PRN Reason Stop Dose Admin Acetaminophen 1,000 mg 07/24/18 08:12 07/24/18 08:36 Ofirmev Injection - IVPB 07/24/18 08:13 1,000 mg ONCE ONE Administration Ceftriaxone Sodium 1,000 mg/ 50 mls @ 100 mls/hr 07/24/18 08:13 07/24/18 08: 36 Dextrose IVPB 07/24/18 08:42 100 mls/hr ONCE ONE Administration Sodium Chloride 1,000 ml 07/24/18 07:40 07/24/18 08:36 Normal Saline - IV 07/24/18 07:41 1,000 ml ONCE ONE Administration Medical Decision Making - Medical Decision Making 07/24/18 09:26 ddx pyelo, bacteremia, sepsis, renal colic, UTI. vs with fever and tachycardia prior urine cultures reviewed. still pending Urine cx from 07/22/18 - lactose fermenting baccilli prior urine cultures reviewed, diggs sensitive e coli and klebsiella IV ceftriaxone, IVF and tylenol for fever here; additional toradol for headache/ fever, Cr ok labs wnl, lactic normal, reassuring neg preg test previously admit observation for acute pyelo failing OP abx admit to Dr Bloom service. 07/24/18 09:27 07/24/18 09:52 *DC/Admit/Observation/Transfer Diagnosis at time of Disposition: Pyelonephritis - Discharge Dispostion Condition at time of disposition: Guarded Decision to Admit order: Yes Decision to Admit order Date/Time: Decision to Admit Order Category Date Time Status Decision to Admit to Hospital Routine Admission 07/24/18 08:13 Active - Referrals Referrals: Aretha Bloom [Primary Care Provider] - - Patient Instructions - Post Discharge Activity
[2018-07-24] MEDS ORDERED: KETOROLAC TROMETHAMINE 15 MG/ML VIAL IVPUSH ONE (10:45)
[2018-07-24] MEDS ORDERED: KETOROLAC TROMETHAMINE 15 MG/ML VIAL ONE (10:50)
[2018-07-24] MEDS ORDERED: ONDANSETRON 4 MG/2 ML VIAL IVPUSH ONE (11:33)
[2018-07-24] MEDS ORDERED: ONDANSETRON 4 MG/2 ML VIAL ONE (11:42)
[2018-07-24] MEDS ORDERED: ONDANSETRON 4 MG/2 ML VIAL IVPB PRN (12:00)
[2018-07-24] MEDS ORDERED: ACETAMINOPHEN 325 MG TABLET (FP) PO PRN (12:01)
[2018-07-24] MEDS: SODIUM CHLORIDE 1,000 ML IV SCH ×2 (12:03→19:51)
[2018-07-24 12:08] LABS: EPI CELLS 9.6 /HPF (0-5/HPF); URINE APPEARANCE CLEAR; URINE BACTERIA 7.8 /hpf (NEGATIVE); URINE BILIRUBIN NEGATIVE (NEGATIVE); URINE CASTS 15 /lpf (0-8); URINE COLOR YELLOW; URINE GLUCOSE (UA) NEGATIVE (NEGATIVE); URINE KETONE 1+ (NEGATIVE); URINE LEUK ESTERASE 1+ (NEGATIVE); URINE NITRITE NEGATIVE (NEGATIVE); URINE PROTEIN NEGATIVE (NEGATIVE); URINE WBC 14 /hpf (0-5)
[2018-07-24 12:44] LABS: URINE RBC 10 /hpf (0-4)
[2018-07-24 12:45] LABS: YEAST PRESENT (NEGATIVE)
--- NOTE | 2018-07-24 15:15 | CON.ID ---
Consult Consult Specialty:: infectious disease Referred by:: dr camacho Reason for Consultation:: fever, uti - History of Present Illness Chief Complaint: fever, vomiting History of Present Illness: 27 yo female seen in ED on 07/22 with 2 dy history of fevr, flank pain, urinary urgncy ct scan negtive cultures sent and discharged on bactrim she has had nausea and vomiting since discharge unable to keep the bactrim down got zofran in ED and ate lunch still with right flank pain and now vaginal itching no recent antibiotics last UTI 4 years ago with - was on macrobid at that time - History Source History Provided By: Patient Limitations to Obtaining History: No Limitations - Past Medical History Pulmonary: Yes: Asthma Renal/: Yes: UTI - Past Surgical History Past Surgical History: Yes: None, - Alcohol/Substance Use Hx Alcohol Use: No - Smoking History Smoking history: Never smoked Have you smoked in the past 12 months: No - Social History Usual Living Arrangement: With Spouse ADL: Independent 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 History of Recent Travel: No Home Medications - Allergies Allergies/Adverse Reactions: Allergies Allergy/AdvReac Type Severity Reaction Status Date / Time No Known Allergies Allergy Verified 07/24/18 07:24 - Home Medications Home Medications: Ambulatory Orders Ondansetron [Zofran Odt -] 4 mg SL TID #10 od.tablet 07/22/18 Sulfamethoxazole/Trimethoprim [Bactrim Ds -] 1 tab PO BID #20 tablet 07/22/18 Family Disease History - Family Disease History Family History: Denies (not aware of any family illnesses) Review of Systems - Review of Systems Constitutional: reports: Chills, Fever Eyes: reports: No Symptoms HENT: reports: No Symptoms Neck: reports: No Symptoms Cardiovascular: reports: No Symptoms. denies: Chest Pain Respiratory: reports: No Symptoms. denies: Cough Gastrointestinal: reports: Nausea, Vomiting Genitourinary: reports: Flank Pain (right) Musculoskeletal: reports: No Symptoms Integumentary: reports: No Symptoms Physical Exam Vital Signs: Vital Signs Temperature 98.8 F 07/24/18 11:47 Pulse Rate 80 07/24/18 12:20 Respiratory Rate 18 07/24/18 07:25 Blood Pressure 106/61 07/24/18 12:20 O2 Sat by Pulse Oximetry (%) 96 07/24/18 07:25 Constitutional: Yes: Well Nourished, No Distress, Calm Eyes: Yes: Conjunctiva Clear, EOM Intact HENT: Yes: Atraumatic, Normocephalic. No: Thrush Neck: Yes: Supple, Trachea Midline Cardiovascular: Yes: Regular Rate and Rhythm Respiratory: Yes: Regular, CTA Bilaterally Gastrointestinal: Yes: Normal Bowel Sounds, Soft Renal/: Yes: CVA Tenderness - Right, Other (no suprapubic pain vaginal candidiasis) Extremities: Yes: WNL Edema: No Integumentary: No: Rash Psychiatric: Yes: Alert, Oriented Labs: CBC, BMP 07/24/18 08:17 07/24/18 08:17 urine culture ecoli esbl Imaging - Results Cat Scan: Report Reviewed (diffuse fatty liver, cholelithiasis) Problem List - Problems (1) Pyelonephritis Code(s): N12 - TUBULO-INTERSTITIAL NEPHRITIS, NOT SPCF ACUTE OR CHRONIC (2) Infection due to ESBL-producing Escherichia coli Code(s): A49.8 - OTHER BACTERIAL INFECTIONS OF UNSPECIFIED SITE; Z16.12 - EXTENDED SPECTRUM BETA LACTAMASE (ESBL) RESISTANCE Assessment/Plan ivf ertapenem miconazole vaginal suppository for vaginal itching - cndida vaginitis contact isolation patient and informed
[2018-07-24] MEDS: ERTAPENEM SODIUM 1 GM in SODIUM CHLORIDE 50 ML IVPB SCH (16:18)
[2018-07-24 18:52] VITALS: BMI 43.8
--- NOTE | 2018-07-24 19:39 | HP ---
Admitting History and Physical - Primary Care Physician PCP: Naun Bloom - Admission Chief Complaint: fever. right flank pain History of Present Illness: Pt was seen in ER 2 days ago for fever, right flank pain, frequescy, dg with acute pyelonephritis and sent home on Bactium and zofran. Pt couldn't tolerate Po bactrium, developed nausea, vomiting; pt's continued to have feve, right flank pain; last night she developed chills. Pt returned to ER and was admitted for IV abtx treatment. 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 Travel: No Home Medications - Allergies Allergies/Adverse Reactions: Allergies Allergy/AdvReac Type Severity Reaction Status Date / Time No Known Allergies Allergy Verified 07/24/18 07:24 - Home Medications Home Medications: Ambulatory Orders Ondansetron [Zofran Odt -] 4 mg SL TID #10 od.tablet 07/22/18 Sulfamethoxazole/Trimethoprim [Bactrim Ds -] 1 tab PO BID #20 tablet 07/22/18 Review of Systems - Review of Systems Constitutional: reports: Chills, Fever Eyes: denies: Blurred Vision, Double Vision HENT: denies: Difficult Swallowing, Ear Discharge, Nasal Congestion, Throat Pain Neck: denies: Stiffness, Tenderness Cardiovascular: denies: Chest Pain, Edema, Palpitations Respiratory: denies: Cough, SOB Gastrointestinal: reports: Nausea, Vomiting. denies: Abdominal Pain Genitourinary: reports: Flank Pain (right), Frequency. denies: Burning Musculoskeletal: denies: Back Pain, Muscle Pain Integumentary: reports: Rash. denies: Blister Neurological: reports: Numbness. denies: Change in LOC, Confusion Endocrine: denies: Excessive Sweating, Intolerance to Cold Hematology/Lymphatic: denies: Easily Bruised, Excessive Bleeding Psychiatric: denies: Anxiety, Depression Physical Examination Vital Signs: Vital Signs Temperature 101.3 F H 07/24/18 18:52 Pulse Rate 104 H 07/24/18 18:52 Respiratory Rate 16 07/24/18 18:52 Blood Pressure 120/61 07/24/18 18:52 O2 Sat by Pulse Oximetry (%) 97 07/24/18 18:53 Constitutional: Yes: No Distress, Calm Eyes: Yes: Conjunctiva Clear, PERRL HENT: No: Epistaxis, Pharyngeal Erythema, Rhinnorhea Neck: Yes: Trachea Midline. No: Lymphadenopathy Cardiovascular: Yes: Regular Rate and Rhythm, S1, S2 Respiratory: Yes: Regular, CTA Bilaterally. No: Rales Gastrointestinal: Yes: Normal Bowel Sounds, Soft, Other (right side CVAT and flank pain). No: Palpable Mass ...Rectal Exam: Yes: Deferred Renal/: Yes: CVA Tenderness - Right. 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 Imaging - Results Cat Scan: Report Reviewed Problem List - Problems (1) Acute pyelonephritis Code(s): N10 - ACUTE PYELONEPHRITIS (2) Acute pyelonephritis Code(s): N10 - ACUTE PYELONEPHRITIS (3) Asthma Code(s): J45.909 - UNSPECIFIED ASTHMA, UNCOMPLICATED (4) Infection due to ESBL-producing Escherichia coli Code(s): A49.8 - OTHER BACTERIAL INFECTIONS OF UNSPECIFIED SITE; Z16.12 - EXTENDED SPECTRUM BETA LACTAMASE (ESBL) RESISTANCE (5) Mastitis Code(s): N61 - INFLAMMATORY DISORDERS OF BREAST * DO NOT USE * Assessment/Plan IVF ID consult IV Abtx consult Zofran for nause Tylenol for fever and pain AM labs
[2018-07-24] MEDS: MICONAZOLE NITRATE 200 MG VAGINAL SUPPOSITORY PV SCH (22:17)
[2018-07-25 07:43] LABS: HEMATOCRIT 32.6 % (32.4-45.2); HEMOGLOBIN 11.1 GM/dL (10.7-15.3); MCH 28.2 pg (25.7-33.7); MEAN CELL VOLUME 83.1 fl (80-96); MEAN PLT VOLUME 7.6 fl (7.5-11.1); PLATELET COUNT 203 K/MM3 (134-434); RBC 3.92 M/mm3 (3.60-5.2); RDW 13.4 % (11.6-15.6); WHITE BLOOD COUNT 3.4 K/mm3 (4.0-10.0)
[2018-07-25 08:05] LABS: ALBUMIN 3.1 g/dl (3.4-5.0); ALK PHOS 102 U/L (45-117); ANION GAP 9 MMOL/L (8-16); BILIRUBIN,TOTAL 0.4 mg/dL (0.2-1); BLOOD UREA NITROGEN 6 mg/dL (7-18); CALCIUM 7.9 mg/dL (8.5-10.1); CHLORIDE 110 mmol/L (98-107); CO2 22 mmol/L (21-32); CREATININE 0.5 mg/dL (0.55-1.3); GLUCOSE,RANDOM 91 mg/dL (74-106); SGOT/AST 37 U/L (15-37); SGPT/ALT 39 U/L (13-61); SODIUM 141 mmol/L (136-145); TOT PROT 6.3 g/dl (6.4-8.2)
[2018-07-25] MEDS: ERTAPENEM SODIUM 1 GM in SODIUM CHLORIDE 50 ML IVPB SCH (10:00)
[2018-07-25 10:04] LABS: ERYTHROCYTE SEDIMENTATION RATE 38 mm/hr (0-20)
[2018-07-25] MEDS: SODIUM CHLORIDE 1,000 ML IV SCH (12:50)
--- NOTE | 2018-07-25 13:40 | EKG ---
Test Reason : Blood Pressure : / mmHG Vent. Rate : 094 BPM Atrial Rate : 094 BPM P-R Int : 170 ms QRS Dur : 088 ms QT Int : 350 ms P-R-T Axes : 035 028 015 degrees QTc Int : 437 ms NORMAL SINUS RHYTHM NORMAL ECG NO PREVIOUS ECGS AVAILABLE Confirmed by JACEY TAYLOR MD ([id number]) on 07/25/2018 1:39:24 PM Referred By: Confirmed By:JACEY TAYLOR MD
--- NOTE | 2018-07-25 14:40 | PN ---
Progress Note (short form) - Note Progress Note: fevers improved nausea improved now on ertapenem- started yesterday Vital Signs Period Temp Pulse Resp BP Sys/Street Pulse Ox Last 24 Hr 98.8 F-101.3 F 76-104 16-20 109-138/61-82 97-98 cor-rrr lungs clear abd soft,nt CVAT resolved, no pain ext no edema CBC, BMP 07/25/18 07:00 07/25/18 07:00 Microbiology 07/24/18 08:00 Blood - Peripheral Venous Blood Culture - Preliminary NO GROWTH OBTAINED AFTER 24 HOURS, INCUBATION TO CONTINUE FOR 4 DAYS. 07/24/18 08:17 Blood - Peripheral Venous Blood Culture - Preliminary NO GROWTH OBTAINED AFTER 24 HOURS, INCUBATION TO CONTINUE FOR 4 DAYS. 07/24/18 11:53 Urine - Urine Clean Catch Urine Culture - Final Contaminated: Please Repeat a/p Ecoli esbl pyelonephritis if afebrile in am, place PICC line for outpt iv antibiotics would not use nitrofurantoin and no other oral options available Problem List - Problems (1) Pyelonephritis Code(s): N12 - TUBULO-INTERSTITIAL NEPHRITIS, NOT SPCF ACUTE OR CHRONIC (2) Infection due to ESBL-producing Escherichia coli Code(s): A49.8 - OTHER BACTERIAL INFECTIONS OF UNSPECIFIED SITE; Z16.12 - EXTENDED SPECTRUM BETA LACTAMASE (ESBL) RESISTANCE
--- NOTE | 2018-07-25 16:49 | PN ---
Progress Note, Physician History of Present Illness: Pt is felling better, no right flank pain, no abd pain, no N/ V. Pt is able to tolerate PO fluids - Current Medication List Current Medications: Active Medications Acetaminophen (Tylenol -) 650 mg PO Q6H PRN PRN Reason: FEVER Last Admin: 07/25/18 06:43 Dose: 650 mg Sodium Chloride (Normal Saline -) 1,000 mls @ 75 mls/hr IV ASDIR RAFAEL Last Admin: 07/25/18 12:50 Dose: 75 mls/hr Ertapenem 1 gm/ Sodium (Chloride) 50 mls @ 100 mls/hr IVPB DAILY [facility] Last Admin: 07/25/18 10:00 Dose: 100 mls/hr Miconazole Nitrate (Miconazole 3) 200 mg PV HS [facility] Stop: 07/26/18 22:01 Last Admin: 07/24/18 22:17 Dose: 200 mg Ondansetron HCl (Zofran Injection) 4 mg IVPB Q8H PRN PRN Reason: NAUSEA Last Admin: 07/24/18 17:20 Dose: 4 mg - Objective Vital Signs: Vital Signs Temperature 99.2 F 07/25/18 05:33 Pulse Rate 95 H 07/25/18 05:33 Respiratory Rate 18 07/25/18 09:00 Blood Pressure 138/72 07/25/18 05:33 O2 Sat by Pulse Oximetry (%) 96 07/25/18 09:00 Constitutional: Yes: No Distress, Calm Cardiovascular: Yes: Regular Rate and Rhythm, S1, S2 Respiratory: Yes: Regular, CTA Bilaterally. No: Rales Gastrointestinal: Yes: Normal Bowel Sounds, Soft. No: Tenderness Genitourinary: No: CVA Tenderness - Left, CVA Tenderness - Right Edema: No Neurological: Yes: Alert, Oriented Labs: CBC, BMP 07/25/18 07:00 07/25/18 07:00 Problem List - Problems (1) Acute pyelonephritis Code(s): N10 - ACUTE PYELONEPHRITIS (2) Acute pyelonephritis Code(s): N10 - ACUTE PYELONEPHRITIS (3) Asthma Code(s): J45.909 - UNSPECIFIED ASTHMA, UNCOMPLICATED (4) Infection due to ESBL-producing Escherichia coli Code(s): A49.8 - OTHER BACTERIAL INFECTIONS OF UNSPECIFIED SITE; Z16.12 - EXTENDED SPECTRUM BETA LACTAMASE (ESBL) RESISTANCE (5) Mastitis Code(s): N61 - INFLAMMATORY DISORDERS OF BREAST * DO NOT USE * Assessment/Plan IVF ID consult is appreciated IV Abtx consult Zofran for nausea Tylenol for fever and pain AM labs
[2018-07-25] MEDS ORDERED: ACETAMINOPHEN 325 MG TABLET (FP) PO PRN (19:02)
[2018-07-25] MEDS: MICONAZOLE NITRATE 200 MG VAGINAL SUPPOSITORY PV SCH (22:37)
[2018-07-26 06:40] LABS: ALK PHOS 94 U/L (45-117); ANION GAP 6 MMOL/L (8-16); BILIRUBIN,TOTAL 0.2 mg/dL (0.2-1); BLOOD UREA NITROGEN 8 mg/dL (7-18); CALCIUM 8.1 mg/dL (8.5-10.1); CHLORIDE 109 mmol/L (98-107); CO2 25 mmol/L (21-32); CREATININE 0.5 mg/dL (0.55-1.3); GLUCOSE,RANDOM 90 mg/dL (74-106); SGOT/AST 25 U/L (15-37); SGPT/ALT 38 U/L (13-61); SODIUM 140 mmol/L (136-145); TOT PROT 6.2 g/dl (6.4-8.2)
[2018-07-26 06:52] LABS: HEMOGLOBIN 11.3 GM/dL (10.7-15.3); MCH 28.2 pg (25.7-33.7); MCHC 34.1 g/dl (32.0-36.0); MEAN CELL VOLUME 82.6 fl (80-96); MEAN PLT VOLUME 7.6 fl (7.5-11.1); PLATELET COUNT 216 K/MM3 (134-434); RDW 13.5 % (11.6-15.6); WHITE BLOOD COUNT 3.6 K/mm3 (4.0-10.0)
--- NOTE | 2018-07-26 08:08 | CON.GU ---
Consult Consult Specialty:: Referred by:: leona Reason for Consultation:: UTI - History of Present Illness Chief Complaint: flank pain and fever History of Present Illness: 27 year old woman with days of fever and flank pain. She was started on antibiotics and admitted. She denies previous pyelonephritis but has had UTIs in the past. No GI symptoms. CT reveals normal kidneys - History Source History Provided By: Patient Limitations to Obtaining History: No Limitations - Past Medical History [place]: No: Alzheimer's, CVA, Dementia, Migraine, Multiple Sclerosis, Peripheral Neuropathy, Parkinson's, Seizure, Syncope, TIA, Vertigo, Other Pulmonary: Yes: Asthma Gastrointestinal: No: Ascites, Cancer, Constipation, Crohn's Disease, Diverticulitis, Diverticulosis, Esophageal Varices, Gastritis, GERD, GI Bleed, Hemorrhoids, Hiatal Hernia, Inflamatory Bowel Disease, Irritable Bowel Disease, Pancreatitis, Peptic Ulcer Disease, Ulcerative Colitis, Other Renal/: Yes: UTI ...LMP: 03/09/18 ...LMP Comment: irregular periods ...: No - Past Surgical History Past Surgical History: Yes: None, - Alcohol/Substance Use Hx Alcohol Use: No - Smoking History Smoking history: Never smoked Have you smoked in the past 12 months: No - Social History Usual Living Arrangement: With Spouse ADL: Independent 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 History of Recent Travel: No Home Medications - Allergies Allergies/Adverse Reactions: Allergies Allergy/AdvReac Type Severity Reaction Status Date / Time No Known Allergies Allergy Verified 07/24/18 07:24 - Home Medications Home Medications: Ambulatory Orders Ondansetron [Zofran Odt -] 4 mg SL TID #10 od.tablet 07/22/18 Sulfamethoxazole/Trimethoprim [Bactrim Ds -] 1 tab PO BID #20 tablet 07/22/18 Review of Systems - Review of Systems Constitutional: reports: Fever Genitourinary: reports: Flank Pain Physical Exam- Vital Signs: Vital Signs Temperature 98.2 F 07/26/18 06:38 Pulse Rate 71 07/26/18 06:38 Respiratory Rate 20 07/26/18 06:38 Blood Pressure 114/66 07/26/18 06:38 O2 Sat by Pulse Oximetry (%) 96 07/25/18 21:00 Constitutional: Yes: Well Nourished, No Distress, Calm Respiratory: Yes: WNL, Regular, CTA Bilaterally Gastrointestinal: Yes: WNL, Normal Bowel Sounds Renal/: Yes: WNL Labs: CBC, BMP 07/26/18 05:55 07/26/18 05:55 Imaging - Results Cat Scan: Report Reviewed Problem List - Problems (1) Pyelonephritis Assessment/Plan: uncomplicated UTI. abx. no surgical intervention Code(s): N12 - TUBULO-INTERSTITIAL NEPHRITIS, NOT SPCF ACUTE OR CHRONIC
[2018-07-26] MEDS: ERTAPENEM SODIUM 1 GM in SODIUM CHLORIDE 50 ML IVPB SCH (10:02)
[2018-07-26 10:10] VITALS: BP 136/63; PULSE 82; TEMP 98.6
--- NOTE | 2018-07-26 10:55 | PN ---
Progress Note, Physician History of Present Illness: Pt is felling better, no right flank pain, no abd pain, no N/ V. Pt is able to tolerate PO. - Current Medication List Current Medications: Active Medications Acetaminophen (Tylenol -) 650 mg PO Q6H PRN PRN Reason: PAIN OR FEVER Last Admin: 07/25/18 22:36 Dose: 650 mg Sodium Chloride (Normal Saline -) 1,000 mls @ 75 mls/hr IV ASDIR RAFAEL Last Admin: 07/25/18 12:50 Dose: 75 mls/hr Ertapenem 1 gm/ Sodium (Chloride) 50 mls @ 100 mls/hr IVPB DAILY [facility] Last Admin: 07/26/18 10:02 Dose: 100 mls/hr Miconazole Nitrate (Miconazole 3) 200 mg PV HS [facility] Stop: 07/26/18 22:01 Last Admin: 07/25/18 22:37 Dose: 200 mg Ondansetron HCl (Zofran Injection) 4 mg IVPB Q8H PRN PRN Reason: NAUSEA Last Admin: 07/24/18 17:20 Dose: 4 mg - Objective Vital Signs: Vital Signs Temperature 98.6 F 07/26/18 10:00 Pulse Rate 82 07/26/18 10:00 Respiratory Rate 17 07/26/18 10:00 Blood Pressure 136/63 07/26/18 10:00 O2 Sat by Pulse Oximetry (%) 96 07/25/18 21:00 Constitutional: Yes: No Distress, Calm Cardiovascular: Yes: Regular Rate and Rhythm, S1, S2 Respiratory: Yes: Regular, CTA Bilaterally. No: Rales Gastrointestinal: Yes: Normal Bowel Sounds, Soft, Tenderness Genitourinary: No: CVA Tenderness - Left, CVA Tenderness - Right Edema: No Neurological: Yes: Alert, Oriented Labs: CBC, BMP 07/26/18 05:55 07/26/18 05:55 Problem List - Problems (1) Acute pyelonephritis Code(s): N10 - ACUTE PYELONEPHRITIS (2) Acute pyelonephritis Code(s): N10 - ACUTE PYELONEPHRITIS (3) Asthma Code(s): J45.909 - UNSPECIFIED ASTHMA, UNCOMPLICATED (4) Infection due to ESBL-producing Escherichia coli Code(s): A49.8 - OTHER BACTERIAL INFECTIONS OF UNSPECIFIED SITE; Z16.12 - EXTENDED SPECTRUM BETA LACTAMASE (ESBL) RESISTANCE (5) Mastitis Code(s): N61 - INFLAMMATORY DISORDERS OF BREAST * DO NOT USE * Assessment/Plan ID consult is appreciated IV Abtx -might go home with PICC line and IV abtx consult is appreciated Zofran for nausea Tylenol for fever and pain
--- NOTE | 2018-07-26 14:47 | PN ---
Progress Note (short form) - Note Progress Note: fevers resolved doing well no fevers no chills nausea and flank pain resolved Vital Signs Period Temp Pulse Resp BP Sys/Street Pulse Ox Last 24 Hr 98.2 F-98.6 F 71-89 17-20 114-136/63-69 96 cor-rrr lungs clear abd soft,nt no flank pain ext no edema CBC, BMP 07/26/18 05:55 07/26/18 05:55 Microbiology 07/24/18 08:00 Blood - Peripheral Venous Blood Culture - Preliminary NO GROWTH OBTAINED AFTER 48 HOURS, INCUBATION TO CONTINUE FOR 3 DAYS. 07/24/18 08:17 Blood - Peripheral Venous Blood Culture - Preliminary NO GROWTH OBTAINED AFTER 48 HOURS, INCUBATION TO CONTINUE FOR 3 DAYS. 07/24/18 11:53 Urine - Urine Clean Catch Urine Culture - Final Contaminated: Please Repeat a/p Ecoli esbl pyelonephritis-day #3 ertapenem, picc line and ertapenem another 7 days paperwork done for outpt antibiotics to start tomorrow would not use nitrofurantoin and no other oral options available Problem List - Problems (1) Pyelonephritis Code(s): N12 - TUBULO-INTERSTITIAL NEPHRITIS, NOT SPCF ACUTE OR CHRONIC (2) Infection due to ESBL-producing Escherichia coli Code(s): A49.8 - OTHER BACTERIAL INFECTIONS OF UNSPECIFIED SITE; Z16.12 - EXTENDED SPECTRUM BETA LACTAMASE (ESBL) RESISTANCE
--- NOTE | 2018-07-26 17:21 | DS ---
Physical Examination Vital Signs: Vital Signs Temperature 98.6 F 07/26/18 10:00 Pulse Rate 82 07/26/18 10:00 Respiratory Rate 17 07/26/18 10:00 Blood Pressure 136/63 07/26/18 10:00 O2 Sat by Pulse Oximetry (%) 99 07/26/18 10:00 Findings/Remarks: See today Progress Note for HPI, ROS, PE. Labs: CBC, BMP 07/26/18 05:55 07/26/18 05:55 Discharge Summary Reason For Visit: PYELONEPHRITIS Current Active Problems Acute pyelonephritis (Acute) Acute pyelonephritis (Acute) Asthma (Acute) Infection due to ESBL-producing Escherichia coli (Acute) Pyelonephritis (Acute) Procedures: Principal: PICC line placement Hospital Course: Pt returned to ER with fever, chills, nausea, vomiting after was started on PO abtx for acute pyelonephritis. 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 Pt was seen by ID (Dr. Resendez) and (Dr. Kim). Pt to be 'ed home with PICC line and returning daily to hospital for IV abtx. Condition: Improved - Instructions Diet, Activity, Other Instructions: Regular Disposition: HOME - Home Medications Comprehensive Discharge Medication List: Ambulatory Orders see Patients Discharge Instruction
== END 2018-07-26 18:46 | disposition home or self-care (01) ==
LOC: JER 07:09 → JERBED 08:13 → J6S 16:50
PROVIDERS: ADMIT Internal Medicine; ATTEND Internal Medicine
PROC: 05HB33Z Insertion of Infusion Device into Right Basilic Vein, Percutaneous Approach (ICD-10-PCS; principal; 2018-07-24)
PROC: B54MZZA Ultrasonography of Right Upper Extremity Veins, Guidance (ICD-10-PCS; 2018-07-24)
PROC: 3E03329 Introduction of Other Anti-infective into Peripheral Vein, Percutaneous Approach (ICD-10-PCS; 2018-07-24)
PROC: 3E0333Z Introduction of Anti-inflammatory into Peripheral Vein, Percutaneous Approach (ICD-10-PCS; 2018-07-24)
PROC: 3E0337Z Introduction of Electrolytic and Water Balance Substance into Peripheral Vein, Percutaneous Approach (ICD-10-PCS; 2018-07-24)
PROC: 3E033GC Introduction of Other Therapeutic Substance into Peripheral Vein, Percutaneous Approach (ICD-10-PCS; 2018-07-24)
DX: N10 Acute pyelonephritis (principal); A49.8 Other bacterial infections of unspecified site; Z16.12 Extended spectrum beta lactamase (ESBL) resistance; J45.909 Unspecified asthma, uncomplicated
CPT/HCPCS: 36415; 36569; 77001-TC-FY; 80053; 81003; 83605; 85025; 85027; 85651; 87040; 87086; 93005; 93010; 99282-25; C1751; G0378; J0131; J7030

== ENCOUNTER 2018-07-27 10:09 | Day surgery (SDC) | payer OTHER ==
[2018-07-27] MEDS ORDERED: ERTAPENEM SODIUM 1 GM in SODIUM CHLORIDE 50 ML IVPB ONE (10:30)
[2018-07-27 13:16] VITALS: BP 102/64; PULSE 54; TEMP 97.8
== END 2018-07-27 13:15 | disposition home or self-care (01) ==
LOC: JINFUSION 10:09 → J7W 10:15 → JINFUSION 13:15
PROVIDERS: ATTEND Internal Medicine
DX: N10 Acute pyelonephritis (principal); A49.8 Other bacterial infections of unspecified site; Z16.12 Extended spectrum beta lactamase (ESBL) resistance
CPT/HCPCS: 96365

== ENCOUNTER 2018-07-28 09:44 | Day surgery (SDC) | payer OTHER ==
[2018-07-28] MEDS ORDERED: ERTAPENEM SODIUM 1 GM in SODIUM CHLORIDE 50 ML IVPB ONE (10:00)
[2018-07-28 10:05] VITALS: TEMP 99
[2018-07-28 12:00] VITALS: BP 112/60; PULSE 78
== END 2018-07-28 12:09 | disposition home or self-care (01) ==
LOC: JINFUSION 09:44 → J7W 09:45 → JINFUSION 12:09
PROVIDERS: ATTEND Internal Medicine
DX: N10 Acute pyelonephritis (principal); A49.8 Other bacterial infections of unspecified site; Z16.12 Extended spectrum beta lactamase (ESBL) resistance
CPT/HCPCS: 96365

== ENCOUNTER 2018-07-29 11:37 | Day surgery (SDC) | payer OTHER ==
[~2018-07-29 11:37] MED LIST: ERTAPENEM SODIUM 1 GM in SODIUM CHLORIDE 50 ML IVPB ONE
[2018-07-29 12:00] VITALS: TEMP 98.3
[2018-07-29 12:32] VITALS: BP 114/46; PULSE 70
== END 2018-07-29 12:36 | disposition home or self-care (01) ==
LOC: JINFUSION 11:37
PROVIDERS: ATTEND Internal Medicine
DX: N10 Acute pyelonephritis (principal); A49.8 Other bacterial infections of unspecified site; Z16.12 Extended spectrum beta lactamase (ESBL) resistance
CPT/HCPCS: 96365

== ENCOUNTER 2018-07-30 12:09 | Day surgery (SDC) | payer OTHER ==
[2018-07-30 12:57] VITALS: BP 96/51; PULSE 89; TEMP 98.2
== END 2018-07-30 13:20 | disposition home or self-care (01) ==
LOC: JINFUSION 12:09
PROVIDERS: ATTEND Internal Medicine
DX: N10 Acute pyelonephritis (principal); A49.8 Other bacterial infections of unspecified site; Z16.12 Extended spectrum beta lactamase (ESBL) resistance
CPT/HCPCS: 96365

== ENCOUNTER 2018-07-31 11:57 | Day surgery (SDC) | payer OTHER ==
[2018-07-31 13:08] LABS: HEMATOCRIT 36.4 % (32.4-45.2); HEMOGLOBIN 12.1 GM/dL (10.7-15.3); MCH 28.1 pg (25.7-33.7); MCHC 33.3 g/dl (32.0-36.0); MEAN CELL VOLUME 84.4 fl (80-96); MEAN PLT VOLUME 7.3 fl (7.5-11.1); PLATELET COUNT 331 K/MM3 (134-434); RBC 4.32 M/mm3 (3.60-5.2); RDW 13.6 % (11.6-15.6); WHITE BLOOD COUNT 7.2 K/mm3 (4.0-10.0)
[2018-07-31 13:29] VITALS: BP 128/75; PULSE 81; TEMP 98.2
[2018-07-31 13:35] LABS: ALBUMIN 3.6 g/dl (3.4-5.0); BILIRUBIN,TOTAL 0.2 mg/dL (0.2-1); CALCIUM 8.7 mg/dL (8.5-10.1); CREATININE 0.6 mg/dL (0.55-1.3); TOT PROT 6.7 g/dl (6.4-8.2)
== END 2018-07-31 13:20 | disposition home or self-care (01) ==
LOC: JINFUSION 11:57
PROVIDERS: ATTEND Internal Medicine
DX: N10 Acute pyelonephritis (principal); A49.8 Other bacterial infections of unspecified site; Z16.12 Extended spectrum beta lactamase (ESBL) resistance
CPT/HCPCS: 36415; 80053; 85027; 96365

== ENCOUNTER 2018-08-01 11:59 | Day surgery (SDC) | payer OTHER ==
[2018-08-01 12:34] VITALS: TEMP 98.1
[2018-08-01 13:49] VITALS: BP 129/78; PULSE 86
== END 2018-08-01 13:00 | disposition home or self-care (01) ==
LOC: JINFUSION 11:59
PROVIDERS: ATTEND Internal Medicine
DX: N10 Acute pyelonephritis (principal); A49.8 Other bacterial infections of unspecified site; Z16.12 Extended spectrum beta lactamase (ESBL) resistance
CPT/HCPCS: 96365

== ENCOUNTER 2018-08-02 12:00 | Day surgery (SDC) | payer OTHER ==
[2018-08-02 12:27] VITALS: BP 127/82; PULSE 81; TEMP 98.9
== END 2018-08-02 13:08 | disposition home or self-care (01) ==
LOC: JINFUSION 12:00
PROVIDERS: ATTEND Internal Medicine
DX: N10 Acute pyelonephritis (principal); A49.8 Other bacterial infections of unspecified site; Z16.12 Extended spectrum beta lactamase (ESBL) resistance
CPT/HCPCS: 96365

== ENCOUNTER 2019-01-17 19:21 | Emergency (ER) | payer OTHER ==
[2019-01-17 19:32] VITALS: BP 115/53; PULSE 84; TEMP 98.6; BMI 41.5
[2019-01-17] MEDS ORDERED: ACETAMINOPHEN 500 MG TABLET (FP) PO ONE (19:45)
[2019-01-17] MEDS ORDERED: ACETAMINOPHEN 325 MG TABLET (FP) ONE (19:49)
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
== END 2019-01-17 21:37 | disposition home or self-care (01) ==
LOC: JERFT 19:21
DX: S40.012A Contusion of left shoulder, initial encounter (principal); V44.5XXA Car driver injured in collision with heavy transport vehicle or bus in traffic accident, initial encounter; Y92.414 Local residential or business street as the place of occurrence of the external cause; Y93.89 Activity, other specified; Y99.8 Other external cause status
CPT/HCPCS: 73030-TC-LT-FY; 73060-TC-LT-FY; 84703; 99282-25

== ENCOUNTER 2020-08-25 23:55 | Emergency (ER) | payer OTHER ==
[2020-08-26 00:07] VITALS: BP 113/73; PULSE 80; TEMP 98.4; BMI 39.3
[2020-08-26] MEDS ORDERED: DEXAMETHASONE SOD PHOSPHATE 10 MG/1 ML VIAL IVPUSH ONE (02:02)
[2020-08-26 02:19] LABS: BASO % 0.8 % (0-2.0); EOS % 1.6 % (0-4.5); HEMATOCRIT 37.5 % (32.4-45.2); HEMOGLOBIN 12.6 GM/dL (10.7-15.3); LYMPH % 27.6 % (8-40); MCH 29.8 pg (25.7-33.7); MCHC 33.6 g/dl (32.0-36.0); MEAN CELL VOLUME 88.6 fl (80-96); MEAN PLT VOLUME 7.8 fl (7.5-11.1); MONO % 10.6 % (3.8-10.2); NEUT % 59.4 % (42.8-82.8); PLATELET COUNT 258 K/MM3 (134-434); RBC 4.23 M/mm3 (3.60-5.2); RDW 12.9 % (11.6-15.6); WHITE BLOOD COUNT 8.6 K/mm3 (4.0-10.0)
[2020-08-26 02:39] LABS: CHLORIDE 107 mmol/L (98-107); SODIUM 141 mmol/L (136-145)
[2020-08-26 02:41] LABS: CALCIUM 9.2 mg/dL (8.5-10.1)
[2020-08-26 02:42] LABS: ALBUMIN 3.9 g/dl (3.4-5.0); ANION GAP 4 MMOL/L (8-16); BLOOD UREA NITROGEN 16.1 mg/dL (7-18); CO2 30 mmol/L (21-32); GLUCOSE,RANDOM 98 mg/dL (74-106)
[2020-08-26] MEDS ORDERED: DEXAMETHASONE 4 MG TABLET (FP) PO ONE (02:44)
[2020-08-26 02:45] LABS: SGOT/AST 19 U/L (15-37); SGPT/ALT 32 U/L (13-61)
[2020-08-26 02:46] LABS: BILIRUBIN,TOTAL 0.3 mg/dL (0.2-1)
[2020-08-26 02:47] LABS: TOT PROT 7.3 g/dl (6.4-8.2)
[2020-08-26 02:48] LABS: ALK PHOS 97 U/L (45-117)
[2020-08-26 02:50] LABS: N-TERMINAL BNP 6.3 pg/ml (5-125)
[2020-08-26] MEDS ORDERED: DEXAMETHASONE SOD PHOSPHATE 10 MG/1 ML VIAL ONE (02:56)
[2020-08-26 03:27] LABS: CREATININE 0.6 mg/dL (0.55-1.3)
== END 2020-08-26 04:55 | disposition home or self-care (01) ==
LOC: JER 23:55
DX: R22.41 Localized swelling, mass and lump, right lower limb (principal); R22.42 Localized swelling, mass and lump, left lower limb; M54.30 Sciatica, unspecified side
CPT/HCPCS: 36415; 71046-TC-FY; 72131-TC; 80053; 82550; 83880; 84484; 84703; 85025; 93005; 93010; 93970-TC; 99285-25

== ENCOUNTER 2021-07-20 19:24 | Emergency (ER) | payer OTHER ==
[2021-07-20 19:48] VITALS: BP 118/83; PULSE 88; TEMP 98.6; BMI 42.0
[2021-07-20] MEDS ORDERED: METOCLOPRAMIDE HCL INJECTION 10 MG/2 ML VIAL IVPUSH ONE (21:10)
[2021-07-20] MEDS ORDERED: KETOROLAC TROMETHAMINE 30 MG/1 ML VIAL IVPUSH ONE (21:10)
[2021-07-20] MEDS ORDERED: SODIUM CHLORIDE 0.9% 500 ML INFUS.BAG IV ONE (21:10)
[2021-07-20] MEDS ORDERED: METOCLOPRAMIDE HCL INJECTION 10 MG/2 ML VIAL ONE (21:28)
[2021-07-20] MEDS ORDERED: KETOROLAC TROMETHAMINE 30 MG/1 ML VIAL ONE (21:28)
[2021-07-20 21:42] LABS: BASO % 0.6 % (0-2.0); EOS % 1.3 % (0-4.5); HEMATOCRIT 35.7 % (32.4-45.2); HEMOGLOBIN 12.4 GM/dL (10.7-15.3); LYMPH % 55.9 % (8-40); MCH 29.8 pg (25.7-33.7); MCHC 34.7 g/dl (32.0-36.0); MEAN CELL VOLUME 85.8 fl (80-96); MEAN PLT VOLUME 7.8 fl (7.5-11.1); MONO % 9.5 % (3.8-10.2); NEUT % 32.7 % (42.8-82.8); PLATELET COUNT 220 10^3/uL (134-434); RBC 4.16 M/mm3 (3.60-5.2); RDW 13.3 % (11.6-15.6); WHITE BLOOD COUNT 5.5 K/mm3 (4.0-10.0)
[2021-07-20 21:44] LABS: URINE APPEARANCE CLEAR; URINE BILIRUBIN NEGATIVE (NEGATIVE); URINE COLOR DK YELLOW; URINE GLUCOSE (UA) NEGATIVE (NEGATIVE); URINE KETONE NEGATIVE (NEGATIVE); URINE LEUK ESTERASE NEGATIVE (NEGATIVE); URINE NITRITE NEGATIVE (NEGATIVE); URINE PROTEIN NEGATIVE (NEGATIVE)
[2021-07-20 21:46] LABS: HCG,QUALITATIVE URINE Negative
[2021-07-20 21:57] LABS: ALBUMIN 3.7 g/dl (3.4-5.0); BLOOD UREA NITROGEN 7.2 mg/dL (7-18); CALCIUM 8.7 mg/dL (8.5-10.1)
[2021-07-20 22:00] LABS: CREATININE 0.7 mg/dL (0.55-1.3)
[2021-07-20 22:03] LABS: BILIRUBIN,TOTAL 0.4 mg/dL (0.2-1); TOT PROT 7.2 g/dl (6.4-8.2)
== END 2021-07-20 23:20 | disposition home or self-care (01) ==
LOC: JERFT 19:24
PROC: 3E0333Z Introduction of Anti-inflammatory into Peripheral Vein, Percutaneous Approach (ICD-10-PCS; principal; 2021-07-20)
PROC: 3E033GC Introduction of Other Therapeutic Substance into Peripheral Vein, Percutaneous Approach (ICD-10-PCS; 2021-07-20)
DX: R51.9 Headache, unspecified (principal)
CPT/HCPCS: 36415; 70450-TC; 80053; 81003; 84703; 85025; 99284-25

== ENCOUNTER 2021-12-07 11:34 | Emergency (ER) | payer OTHER ==
[2021-12-07 11:57] VITALS: BP 134/89; PULSE 84; RESP 17; TEMP 98.1; BMI 39.3
== END 2021-12-07 13:12 | disposition home or self-care (01) ==
LOC: JERFT 11:34
DX: M54.6 Pain in thoracic spine (principal); M54.50 Low back pain, unspecified
CPT/HCPCS: 99281-25